=== PATIENT | female | born 1955 | race Caucasian/White ===

== ENCOUNTER 2016-07-01 01:00 | Emergency (ER) | payer BC, MEDICARE ==
[2016-07-01] MEDS ORDERED: IPRATROPIUM/ALBUTEROL 0.5-2.5 MG/3 ML AMPUL NEB ONE ×2 (02:58→05:42)
[2016-07-01] MEDS ORDERED: METHYLPREDNISOLONE INJ 125 MG/2 ML SDV IV ONE (02:58)
[2016-07-01] MEDS ORDERED: HYDROMORPHONE HCL INJ/PF 2 MG/ML AMPULE IV ONE (03:00)
[2016-07-01] MEDS ORDERED: ONDANSETRON HCL INJ/PF 4 MG/2 ML SDV IV ONE (03:01)
--- NOTE | 2016-07-01 03:04 | ER Document Report ---
ED General - General Chief Complaint: Breathing Difficulty Stated Complaint: CANNOT BREATHE,HEADACHE Time seen by provider: 03:00 Notes: Patient is a 60-year-old female that comes emergency department with chief complaint of chest congestion, cough, sinus pain with headache, and sore throat. Patient denies fever. She denies smoking or history of asthma/COPD. Patient states she had symptoms starting 2 weeks ago, on Tuesday her symptoms worsen, on Tuesday she began treatment for the diagnosis of bronchitis and pharyngitis with prednisone 40 mg daily, nasal spray, and Levaquin 500 milligrams daily. Past medical history of rheumatoid arthritis on Humira, fibromyalgia, degenerative disc disease, chronic pain in her cervical and lumbar spine. TRAVEL OUTSIDE OF THE [place] IN LAST 30 DAYS: No Past Medical History - Social History Smoking Status: Never Smoker Frequency of alcohol use: None Drug Abuse: None Lives with: Family Family History: Reviewed & Not Pertinent Patient has suicidal ideation: No Patient has homicidal ideation: No Renal/ Medical History: Denies: Hx Peritoneal Dialysis Musculoskeltal Medical History: Reports Hx Arthritis - Rheumatoid arthritis, Reports Hx Fibromyalgia - Immunizations Immunizations up to date: Yes Hx Diphtheria, Pertussis, Tetanus Vaccination: Yes Review of Systems - Review of Systems Constitutional: No symptoms reported EENT: See HPI Cardiovascular: No symptoms reported Respiratory: See HPI Gastrointestinal: No symptoms reported Genitourinary: No symptoms reported Female Genitourinary: No symptoms reported Musculoskeletal: No symptoms reported Skin: No symptoms reported Hematologic/Lymphatic: No symptoms reported Neurological/Psychological: No symptoms reported Physical Exam - Vital signs Vitals: Temp Pulse Resp BP Pulse Ox 97.8 F 77 18 133/85 H 95 07/01/16 01:03 07/01/16 01:03 07/01/16 01:03 07/01/16 01:03 07/01/16 01:03 Interpretation: Normal - General General appearance: Alert In distress: None - Mildly uncomfortable when she has a coughing episode, otherwise very well-appearing - HEENT Head: Normocephalic, Atraumatic Eyes: Normal Conjunctiva: Normal Extraocular movements intact: Yes Eyelashes: Normal Pupils: PERRL Ears: Normal External canal: Normal Tympanic membrane: Normal Sinus: Maxillary - Bilateral maxillary sinus tenderness more than frontal tenderness Nasal: Other - Mild congestion Pharynx: Erythema - Very mild Neck: Normal - Respiratory Respiratory status: No respiratory distress. No: Labored, Tachypnea Chest status: Nontender Breath sounds: Normal, Nonproductive cough. No: Decreased air movement, Wheezing Chest palpation: Normal - Cardiovascular Rhythm: Regular. No: Tachycardia Heart sounds: Normal auscultation, S1 appreciated, S2 appreciated Murmur: No - Abdominal Inspection: Normal Distension: No distension Bowel sounds: Normal Tenderness: Nontender Organomegaly: No organomegaly - Back Back: Normal, Nontender - Extremities General upper extremity: Normal inspection, Nontender, Normal color, Normal ROM , Normal temperature General lower extremity: Normal inspection, Nontender, Normal color, Normal ROM , Normal temperature, Normal weight bearing. No: Waldemar's sign - Neurological Neuro grossly intact: Yes Cognition: Normal Orientation: AAOx4 [place] Coma Scale Eye Opening: Spontaneous [place] Coma Scale Verbal: Oriented [place] Coma Scale Motor: Obeys Commands [place] Coma Scale Total: 15 Speech: Normal Motor strength normal: LUE, RUE, LLE, RLE Sensory: Normal - Psychological Associated symptoms: Normal affect, Normal mood - Skin Skin Temperature: Warm Skin Moisture: Dry Skin Color: Normal Course - Re-evaluation Re-evalutation: Patient has sinus pain in bilateral maxillary sinuses, mildly erythematous pharynx, occasional congested sounding and painful cough. No tachypnea, labored breathing, hypoxia. Chest x-ray unremarkable, laboratory workup unremarkable. Patient states she feels much improved after medications. Patient requests one more DuoNeb, lungs clear on exam. Patient is started on Levaquin, prednisone, patient will be provided with some symptom management, clinical impression is bronchitis and sinusitis, patient has good primary care follow-up. Patient asking if she should go out of country by the end of the week where she'll be walking for hours a day in [place], my recommendation up on her asking is that she wait until she has had resolution of bronchitis, that she follow with her primary, and she will return if she worsens. Patient states understanding and agreement. - Vital Signs Vital signs: Temp Pulse Resp BP Pulse Ox 97.9 F 86 16 122/64 90 L 07/01/16 05:47 07/01/16 05:47 07/01/16 05:47 07/01/16 05:47 07/01/16 05:47 - Laboratory Result Diagrams: 07/01/16 03:22 07/01/16 03:22 Discharge - Discharge Clinical Impression: Cough, Bronchitis Sinusitis Qualifiers: Sinusitis location: unspecified location Chronicity: acute Recurrence: non- recurrent Qualified Code(s): J01.90 - Acute sinusitis, unspecified Condition: Stable Disposition: HOME, SELF-CARE Additional Instructions: Take the prescribed medication as needed, continue your Levaquin antibiotic, continue the prednisone. Examination workup is consistent with bronchitis and acute sinusitis. Chest x- ray does not show pneumonia, lab workup is normal. Because of the bronchitis and the requirement of treatment I do not recommend that you travel or perform any extensive physical exertions until you recover in about 2 weeks. I recommend that your trip overseas be postponed. The complication of severe bronchitis or secondary pneumonia could be severe. Follow-up closely with your primary care provider. Return to the emergency department for any concerning or worsening symptoms including difficulty breathing, spiking fever, severe headache, or any other concerning symptoms. Prescriptions: Oxycodone HCl/Acetaminophen [Percocet 5-325 mg Tablet] 1 - 2 tab PO Q4H PRN #20 tablet PRN Reason:
[2016-07-01 03:34] LABS: ABSOLUTE LYMPHOCYTES (AUTO) 1.2 10^3/uL (0.5-4.7); ABSOLUTE MONOCYTES (AUTO) 0.7 10^3/uL (0.1-1.4); ABSOLUTE NEUT (AUTO) 3.7 10^3/uL (1.7-8.2); BASOPHILS % (AUTO) 0.5 % (0-2); EOSINOPHILS % (AUTO) 0.3 % (0-6); HEMATOCRIT 38.8 % (36.0-47.0); HEMOGLOBIN 13.4 g/dL (12.0-15.5); HGB HCT DIFFERENCE 1.4; LYMPHOCYTES % (AUTO) 21.4 % (13-45); MEAN CORPUSCULAR HEMOGLOBIN 31.3 pg (27.0-33.4); MEAN CORPUSCULAR HGB CONC 34.7 g/dL (32.0-36.0); MEAN CORPUSCULAR VOLUME 90 fl (80-97); MONOCYTES % (AUTO) 12.3 % (3-13); RED CELL DISTRIBUTION WIDTH 13.4 % (11.5-14.0); SEGMENTED NEUTROPHILS % (AUTO) 65.5 % (42-78); WHITE BLOOD COUNT 5.7 10^3/uL (4.0-10.5)
[2016-07-01 03:44] LABS: ALANINE AMINOTRANSFERASE 50 U/L (9-52); ALBUMIN 4.3 g/dL (3.5-5.0); ALKALINE PHOSPHATASE 99 U/L (38-126); ANION GAP 14 (5-19); ASPARTATE AMINO TRANSFERASE 36 U/L (14-36); BILIRUBIN,DIRECT 0.4 mg/dL (0.0-0.4); BILIRUBIN,TOTAL 0.5 mg/dL (0.2-1.3); BLOOD UREA NITROGEN 9 mg/dL (7-20); CALCIUM 9.3 mg/dL (8.4-10.2); CARBON DIOXIDE 26 mmol/L (22-30); CHLORIDE 102 mmol/L (98-107); CREATININE RESULT 0.54 mg/dL (0.52-1.25); GLUCOSE 105 mg/dL (75-110); SODIUM 142.1 mmol/L (137-145); TOTAL PROTEIN 7.3 g/dL (6.3-8.2)
[2016-07-01 05:48] VITALS: BP 122/64
== END 2016-07-01 05:47 | disposition home or self-care (01) ==
LOC: ER 01:00
DX: J40 Bronchitis, not specified as acute or chronic (principal); J01.90 Acute sinusitis, unspecified; J02.9 Acute pharyngitis, unspecified; R05 Cough; R06.02 Shortness of breath; R51 Headache; R09.89 Other specified symptoms and signs involving the circulatory and respiratory systems
CPT/HCPCS: 94640 ×2; 99285; 96374; 96375; 36415; 87040; 85025; 80053; 71020; J2930; J1170; J2405; A9270; J7620